=== PATIENT | male | born 1950 | race American Indian/Alaskan Native ===

== ENCOUNTER 2017-07-05 07:17 | Day surgery (SDC) | payer MEDICARE, MEDICAID ==
[2017-07-05] MEDS ORDERED: Midazolam 1 MG/ML 2 ML SDV ONE (07:27)
[2017-07-05] MEDS ORDERED: Dexamethasone 4 MG/ML SDV ONE (07:27)
[2017-07-05] MEDS ORDERED: Sodium Chloride 0.9% 10 ML Syringe FLUSH PRN (07:30)
[2017-07-05] MEDS ORDERED: Moxifloxacin 0.5% Ophth Soln 3 ML Bottle EYELF ONE (07:30)
[2017-07-05] MEDS ORDERED: Timolol Maleate 0.5% Ophth Soln 5 ML Bottle EYELF ONE (07:30)
[2017-07-05] MEDS ORDERED: Cataract Ophth Solution EYELF ONE (07:30)
[2017-07-05] MEDS ORDERED: Acetaminophen 325 MG Tab PO PRN (07:30)
[2017-07-05] MEDS ORDERED: Phenylephrine 10% Ophth Soln 5 ML Bot EYELF PRN (07:30)
[2017-07-05] MEDS ORDERED: Phenylephrine 10% Ophth Soln 5 ML Bot EYELF ONE (07:30)
[2017-07-05] MEDS ORDERED: Povidone-Iodine 5% Sterile Ophth Soln 30 ML Bottle EYELF ONE ×2 (07:30→10:33)
[2017-07-05] MEDS ORDERED: Ondansetron 4 MG/2 ML SDV IVPUSH PRN (07:30)
[2017-07-05] MEDS ORDERED: Proparacaine 0.5% Ophth Soln 15 ML Bottle EYELF ONE (07:30)
[2017-07-05] MEDS ORDERED: Acetaminophen/Codeine 300-30 MG Tab PO PRN (07:30)
[2017-07-05] MEDS ORDERED: Tetracaine HCl/PF 0.5% 4 ML Bottle EYELF ONE (10:33)
[2017-07-05] MEDS ORDERED: Dexamethasone/Neomycin/Polymyxin B Ophth Oint 3.5 GM Tube EYELF ONE (10:34)
[2017-07-05] MEDS ORDERED: Apraclonidine 0.5% Ophth Soln 5 ML Bot EYELF ONE (10:35)
[2017-07-05] MEDS ORDERED: Diclofenac Sodium 0.1% Ophth Soln 5 ML Bottle EYELF ONE (10:35)
[2017-07-05] MEDS ORDERED: Vancomycin 500 MG SDV EYELF ONE (10:36)
[2017-07-05] MEDS ORDERED: Balanced Salt Solution Ophth Irrig 500 ML Bottle IOCULAR ONE (10:36)
[2017-07-05] MEDS ORDERED: Chondroitin Sulfate/Hyaluronate Sodium Ophth Inj 0.75 ML Syringe EYELF ONE (10:36)
[2017-07-05 11:14] VITALS: BP 173/102
[2017-07-05] MEDS ORDERED: Midazolam 1 MG/ML 2 ML SDV IV ONE (14:27)
[2017-07-05] MEDS ORDERED: Dexamethasone 4 MG/ML SDV IV ONE (14:27)
== END 2017-07-05 11:25 | disposition home or self-care (01) ==
LOC: DL.SDS 07:17
PROVIDERS: ATTEND Ophthalmology
DX: E11.36 Type 2 diabetes mellitus with diabetic cataract (principal); F17.210 Nicotine dependence, cigarettes, uncomplicated; I10 Essential (primary) hypertension; E78.5 Hyperlipidemia, unspecified; M19.90 Unspecified osteoarthritis, unspecified site; Z53.29 Procedure and treatment not carried out because of patient's decision for other reasons; Z79.899 Other long term (current) drug therapy; Z79.84 Long term (current) use of oral hypoglycemic drugs
CPT/HCPCS: 66920; A9270; J1100; J2250; J7050; J3370

== ENCOUNTER 2018-07-14 15:17 | Emergency (ER) | payer MEDICARE, MEDICAID ==
[2018-07-14] MEDS ORDERED: Albuterol/Ipratropium 3.0-0.5 MG/3 ML Neb Soln NEB ONE (15:37)
[2018-07-14 15:38] VITALS: BP 125/89
[2018-07-14 16:16] LABS: CHLORIDE,CL 101 mmol/L (101-111); SODIUM,NA 134 mmol/L (135-145)
[2018-07-14] MEDS ORDERED: predniSONE 20 MG Tab PO ONE (16:36)
--- NOTE | 2018-07-14 16:49 | EDM.PDOC ---
Scribed by Samantha Polanco 07/14/18 [id number] for Bobby Harrison PA ED HPI GENERAL MEDICAL PROBLEM - General Chief Complaint: Respiratory Problem Stated Complaint: by ambulance Time Seen by Provider: 07/14/18 15:20 Source of Information: Reports: Patient, EMS, EMS Notes Reviewed, RN, RN Notes Reviewed History Limitations: Reports: No Limitations - History of Present Illness INITIAL COMMENTS - FREE TEXT/NARRATIVE: Patient is a 67-year-old male with increased shortness of breath for 2 months. Today he has used his Albuterol inhaler 12 times with no relief. The patient visits his PCP on 06/27/18 but was advised to keep using his inhaler. EMS called yesterday and gave neb treatment and patient felt better. Onset: Gradual Duration: Getting Worse Location: Reports: Chest Quality: Reports: Ache Severity: Moderate Improves with: Reports: None Worsens with: Reports: None Associated Symptoms: Reports: No Other Symptoms - Related Data Allergies Allergy/AdvReac Type Severity Reaction Status Date / Time No Known Allergies Allergy Verified 05/28/16 21:50 Home Meds: Home Meds Mometasone Furoate [Asmanex 220 MCG] 1 puff INH DAILY 02/02/15 [History] Multivitamin with Minerals [Multiple Vitamin] 1 tab PO DAILY 02/02/15 [History] Cameron-3 Fatty Acids/Fish Oil [Fish Oil 1,000 mg Softgel] 1 tab PO DAILY [History] metFORMIN [Glucophage XR] 1 tab PO BID 06/28/17 [History] Albuterol Sulfate [Proair Hfa] 2 puff IH Q4H PRN 07/14/18 [History] Past Medical History HEENT History: Reports: Cataract Cardiovascular History: Reports: High Cholesterol, Hypertension Respiratory History: Reports: None Gastrointestinal History: Reports: None Genitourinary History: Reports: None Musculoskeletal History: Reports: Back Pain, Chronic, Osteoarthritis, Other ( See Below) Other Musculoskeletal History: knee pain Neurological History: Reports: None Psychiatric History: Reports: None Endocrine/Metabolic History: Reports: Diabetes, Type II Hematologic History: Reports: None Immunologic History: Reports: None Oncologic (Cancer) History: Reports: None Dermatologic History: Reports: None - Infectious Disease History Infectious Disease History: Reports: Chicken Pox, Other (See Below) Other Infectious Disease History: pneumonia - Past Surgical History Head Surgeries/Procedures: Reports: None HEENT Surgical History: Reports: Cataract Surgery Cardiovascular Surgical History: Reports: None GI Surgical History: Reports: None Musculoskeletal Surgical History: Reports: None Social & Family History - Family History Family Medical History: Noncontributory - Caffeine Use Caffeine Use: Reports: Coffee Caffeine Use Comment: 2 cups daily ED ROS GENERAL - Review of Systems Review Of Systems: ROS reveals no pertinent complaints other than HPI. ED EXAM, GENERAL - Physical Exam Exam: See Below Exam Limited By: No Limitations General Appearance: Alert, WD/WN, No Apparent Distress Eye Exam: Bilateral Eye: EOMI, Normal Inspection, PERRL Ears: Normal External Exam, Normal Canal, Hearing Grossly Normal, Normal TMs Nose: Normal Inspection, Normal Mucosa, No Blood Throat/Mouth: Normal Inspection, Normal Lips, Normal Teeth, Normal Gums, Normal Oropharynx, Normal Voice, No Airway Compromise Head: Atraumatic, Normocephalic Neck: Normal Inspection, Supple, Non-Tender, Full Range of Motion Respiratory/Chest: Other (diminished lung sounds in bilateral lower lungs. Some diffuse chest pain. Mild pedal edema.) Cardiovascular: Normal Peripheral Pulses, Regular Rate, Rhythm, No Edema, No Gallop, No JVD, No Murmur, No Rub GI/Abdominal: Normal Bowel Sounds, Soft, Non-Tender, No Organomegaly, No Distention, No Abnormal Bruit, No Mass (Male) Exam: Deferred Rectal (Males) Exam: Deferred Back Exam: Normal Inspection, Full Range of Motion, NT Extremities: Normal Inspection, Normal Range of Motion, Non-Tender, Normal Capillary Refill, No Pedal Edema Neurological: Alert, Oriented, CN II-XII Intact, Normal Cognition, Normal Gait, Normal Reflexes, No Motor/Sensory Deficits Psychiatric: Normal Affect, Normal Mood Skin Exam: Warm, Dry, Intact, Normal Color, No Rash Lymphatic: No Adenopathy Course - Vital Signs Last Recorded V/S: Last Vital Signs Temp 36.8 C 07/14/18 15:28 Pulse 84 07/14/18 15:37 Resp 24 H 07/14/18 15:28 BP 125/89 07/14/18 15:28 Pulse Ox 98 07/14/18 15:28 - Orders/Labs/Meds Orders: Active Orders 24 hr Category Date Time Status EKG Documentation Completion [RC] URGENT Care 07/14/18 15:36 Ordered RT Aerosol Therapy [RC] ASDIRECTED Care 07/14/18 15:37 Ordered CULTURE BLOOD [BC] Stat Lab 07/14/18 15:36 Ordered Labs: Laboratory Tests 07/14/18 07/14/18 07/14/18 Range/Units 15:47 15:47 15:47 WBC 5.1 (5.0-10.0) 10^3/uL RBC 5.22 (4.6-6.2) 10^6/uL Hgb 15.4 (14.0-18.0) g/dL Hct 44.9 (40.0-54.0) % MCV 86.0 (80-100) fL MCH 29.5 (27.0-34.0) pg MCHC 34.3 (33.0-35.0) g/dL Plt Count 174 (150-450) 10^3/uL Neut % (Auto) 57.6 (42.2-75.2) % Lymph % (Auto) 25.1 (20.5-50.1) % Story % (Auto) 12.5 H (2-8) % Eos % (Auto) 4.2 H (1.0-3.0) % Baso % (Auto) 0.6 (0.0-1.0) % Sodium 134 L (135-145) mmol/L Potassium 5.0 (3.6-5.0) mmol/L Chloride 101 (101-111) mmol/L Carbon Dioxide 26.0 (21.0-31.0) mmol/L Anion Gap 12.0 BUN 10 (7-18) mg/dL Creatinine 1.0 (0.6-1.3) mg/dL Est Cr Clr Drug Dosing 91.58 mL/min Estimated GFR (MDRD) > 60 BUN/Creatinine Ratio 10.00 Glucose 296 H (74-105) mg/dL Lactic Acid 1.7 (0.5-2.2) mmol/L Calcium 9.0 (8.4-10.2) mg/dl Total Bilirubin 0.6 (0.2-1.0) mg/dL AST 48 H (10-42) IU/L ALT 58 (10-60) IU/L Alkaline Phosphatase 138 H (42-121) IU/L Troponin I < 0.02 (0.00-0.02) ng/ml Total Protein 8.1 (6.7-8.2) g/dl Albumin 4.4 (3.2-5.5) g/dl Globulin 3.7 Albumin/Globulin Ratio 1.19 Meds: Medications Discontinued Medications Generic Name Dose Route Start Last Admin Trade Name Freq PRN Reason Stop Dose Admin Albuterol/Ipratropium 3 ml 07/14/18 15:37 07/14/18 15:43 Duoneb 3.0-0.5 Mg/3 Ml NEB 07/14/18 15:38 3 ml ONETIME ONE Administration Prednisone 40 mg 07/14/18 16:36 Prednisone PO 07/14/18 16:37 ONETIME ONE Departure - Departure Time of Disposition: 16:39 Disposition: Home, Self-Care 01 Condition: Fair Clinical Impression: COPD exacerbation - Discharge Information *PRESCRIPTION DRUG MONITORING PROGRAM REVIEWED*: Not Applicable *COPY OF PRESCRIPTION DRUG MONITORING REPORT IN PATIENT ENMANUEL: Not Applicable Instructions: Chronic Obstructive Pulmonary Disease Exacerbation, [id number] Forms: ED Department Discharge Care Plan Goals: The patient was advised of the examination, lab and EKG results during the visit. The patient was given a dose of Prednisone while in the ED. The patient was discharged with a script for Prednisone (20 mg) #10 to take 2 by mouth daily with food for the next 5 days. The patient should follow-up with his primary care facility for further treatment (a nebulizer machine and medication) . If the patient has any additional symptoms or concerns, the patient should follow-up with his primary care facility or return to the emergency department. - My Orders Last 24 Hours: My Active Orders 07/14/18 15:36 EKG Documentation Completion [RC] URGENT CULTURE BLOOD [BC] Stat 07/14/18 15:37 RT Aerosol Therapy [RC] ASDIRECTED - Assessment/Plan Last 24 Hours: My Active Orders 07/14/18 15:36 EKG Documentation Completion [RC] URGENT CULTURE BLOOD [BC] Stat 07/14/18 15:37 RT Aerosol Therapy [RC] ASDIRECTED I have read and agree with the documentation that has been completed regarding this visit. By signing this record, I attest that the documentation was completed in my physical presence and is an accurate record of the encounter.
--- NOTE | 2018-07-16 16:31 | EKG ---
07/14/2018 - ALIRIO SORTO - TIME: 3:17 p.m. FINDINGS: As per my reading, sinus rhythm at 83. Probable inferior infarct, old. [facility] /[id number]
== END 2018-07-14 17:05 | disposition home or self-care (01) ==
LOC: DL.ED 15:17
DX: J44.1 Chronic obstructive pulmonary disease with (acute) exacerbation (principal); E78.00 Pure hypercholesterolemia, unspecified; I10 Essential (primary) hypertension; E11.9 Type 2 diabetes mellitus without complications; Z79.899 Other long term (current) drug therapy; Z79.84 Long term (current) use of oral hypoglycemic drugs
CPT/HCPCS: 36415; 80053; 83605; 84484; 85025; 87040; 93005; 94640; 99285; A9270; 93010; J7620-GY

== ENCOUNTER 2020-04-12 09:15 | Emergency (ER) | payer MEDICARE, MEDICAID ==
[2020-04-12 09:33] VITALS: BP 118/53; PULSE 93
[2020-04-12] MEDS ORDERED: Sodium Chloride 0.9% 10 ML Syringe FLUSH PRN (09:39)
[2020-04-12 10:30] LABS: ANION GAP 13.8 mEq/L (7-13)
[2020-04-12] MEDS ORDERED: GI Cocktail Oral Solution 30 ML PO ONE (10:39)
[2020-04-12] MEDS ORDERED: Sodium Chloride 0.9% 1,000 ML IV ONE (10:42)
[2020-04-12] MEDS ORDERED: Piperacillin/Tazobactam 3.375 GM in Sodium Chloride 0.9% 100 ML IV ONE (11:16)
[2020-04-12] MEDS ORDERED: Vancomycin 1.5 GM in Sodium Chloride 0.9% 500 ML IV ONE (11:17)
--- NOTE | 2020-04-12 11:20 | EDM.PDOC ---
Scribed by Samantha Polanco 04/12/20 1120 for Cherise Kahn NP ED HPI GENERAL MEDICAL PROBLEM - General Chief Complaint: Skin Complaint Stated Complaint: UNKNOWN Time Seen by Provider: 04/12/20 09:40 Source of Information: Reports: Patient, RN, RN Notes Reviewed History Limitations: Reports: No Limitations - History of Present Illness INITIAL COMMENTS - FREE TEXT/NARRATIVE: Patient presents to ER with drainage from the scrotum a few days ago. Patient states he is unsure if he was bit by a spider. First noticed it 1 week ago and progressively gotten worse. He has had no fever, chills, nausea, vomiting, diarrhea, chest pains or shortness of breath. Onset: Unknown/Unsure Duration: Getting Worse Location: Reports: Other (scrotum) Quality: Reports: Ache Severity: Severe Improves with: Reports: None Worsens with: Reports: None Associated Symptoms: Reports: No Other Symptoms Scrotum Pain Score (Numeric/FACES): 3 - Related Data Allergies Allergy/AdvReac Type Severity Reaction Status Date / Time No Known Allergies Allergy Verified 04/12/20 09:30 Home Meds: Home Meds Mometasone Furoate [Asmanex 220 MCG] 1 puff INH DAILY 02/02/15 [History] Multivitamin with Minerals [Multiple Vitamin] 1 tab PO DAILY 02/02/15 [History] Reynolds-3 Fatty Acids/Fish Oil [Fish Oil 1,000 mg Softgel] 1 tab PO DAILY [History] metFORMIN [Glucophage XR] 1 tab PO BID 06/28/17 [History] Albuterol Sulfate [Proair Hfa] 2 puff IH Q4H PRN 07/14/18 [History] Past Medical History HEENT History: Reports: Cataract Cardiovascular History: Reports: High Cholesterol, Hypertension Respiratory History: Reports: None Gastrointestinal History: Reports: None Genitourinary History: Reports: None Musculoskeletal History: Reports: Back Pain, Chronic, Osteoarthritis, Other ( See Below) Other Musculoskeletal History: knee pain Neurological History: Reports: None Psychiatric History: Reports: None Endocrine/Metabolic History: Reports: Diabetes, Type II Hematologic History: Reports: None Immunologic History: Reports: None Oncologic (Cancer) History: Reports: None Dermatologic History: Reports: None - Infectious Disease History Infectious Disease History: Reports: Chicken Pox, Other (See Below) Other Infectious Disease History: pneumonia - Past Surgical History Head Surgeries/Procedures: Reports: None HEENT Surgical History: Reports: Cataract Surgery Cardiovascular Surgical History: Reports: None GI Surgical History: Reports: None Musculoskeletal Surgical History: Reports: None Social & Family History - Family History Family Medical History: Noncontributory - Tobacco Use Smoking Status *Q: Heavy Tobacco Smoker Years of Tobacco use: 22 Packs/Tins Daily: 1 - Caffeine Use Caffeine Use: Reports: Coffee Caffeine Use Comment: 2 cups daily - Recreational Drug Use Recreational Drug Use: No ED ROS GENERAL - Review of Systems Review Of Systems: Comprehensive ROS is negative, except as noted in HPI. ED EXAM, SKIN/RASH Exam: See Below Exam Limited By: No Limitations General Appearance: Alert, WD/WN, No Apparent Distress Eye Exam: Bilateral Eye: EOMI, Normal Inspection, PERRL Ears: Normal External Exam, Normal Canal, Hearing Grossly Normal, Normal TMs Nose: Normal Inspection, Normal Mucosa, No Blood Throat/Mouth: Normal Inspection, Normal Lips, Normal Teeth, Normal Gums, Normal Oropharynx, Normal Voice, No Airway Compromise Head: Atraumatic, Normocephalic Neck: Normal Inspection, Supple, Non-Tender, Full Range of Motion Respiratory/Chest: Crackles (bases bilaterally) Cardiovascular: Normal Peripheral Pulses, Regular Rate, Rhythm, No Edema, No Gallop, No JVD, No Murmur, No Rub GI/Abdominal: Normal Bowel Sounds, Soft, Non-Tender, No Organomegaly, No Distention, No Abnormal Bruit, No Mass (Male) Exam: Scrotal Swelling (and erythema ) Rectal (Males) Exam: Deferred Back Exam: Normal Inspection, Full Range of Motion, NT Extremities: Normal Inspection, Normal Range of Motion, Non-Tender, No Pedal Edema, Normal Capillary Refill Neurological: Alert, Oriented, CN II-XII Intact, Normal Cognition, Normal Gait, Normal Reflexes, No Motor/Sensory Deficits Psychiatric: Normal Affect, Normal Mood Skin: Other (erythematous and swelling to scrotum) Lymphatic: No Adenopathy Course - Vital Signs Last Recorded V/S: Last Vital Signs Temp 97.1 F 04/12/20 09:30 Pulse 93 04/12/20 09:30 Resp 18 04/12/20 09:30 BP 118/53 L 04/12/20 09:30 Pulse Ox 97 04/12/20 09:30 - Orders/Labs/Meds Orders: Active Orders 24 hr Category Date Time Status Alvarez Catheter Insertion [Insert Urinary Catheter] [OM. Care 04/12/20 11:30 Ordered PC] Q24H Peripheral IV Care [RC] . DIRECTED Care 04/12/20 09:41 Active Urinary Catheter Assessment [RC] ASDIRECTED Care 04/12/20 11:18 Active CULTURE BLOOD [BC] Stat Lab 04/12/20 09:54 Received CULTURE BLOOD [BC] Stat Lab 04/12/20 09:58 Received CULTURE WOUND [RM] Urgent Lab 04/12/20 09:54 Received Blood Culture x2 Reflex Set [OM.PC] Stat Oth 04/12/20 09:41 Ordered Peripheral IV Insertion Adult [OM.PC] Stat Oth 04/12/20 09:39 Ordered Labs: Laboratory Tests 04/12/20 04/12/20 04/12/20 Range/Units 09:54 09:54 09:54 WBC 12.0 H (5.0-10.0) 10^3/uL RBC 4.08 L (4.6-6.2) 10^6/uL Hgb 12.0 L D (14.0-18.0) g/dL Hct 34.5 L (40.0-54.0) % MCV 84.6 (80-100) fL MCH 29.4 (27.0-34.0) pg MCHC 34.8 (33.0-35.0) g/dL Plt Count 253 D (150-450) 10^3/uL Neut % (Auto) 87.2 H (42.2-75.2) % Lymph % (Auto) 5.3 L (20.5-50.1) % Louisa % (Auto) 6.0 (2-8) % Eos % (Auto) 1.3 (1.0-3.0) % Baso % (Auto) 0.2 (0.0-1.0) % Sodium 131 L (136-145) mmol/L Potassium 3.8 (3.5-5.1) mmol/L Chloride 95 L (98-107) mmol/L Carbon Dioxide 26 (21-32) mmol/L Anion Gap 13.8 H (7-13) mEq/L BUN 12 (7-18) mg/dL Creatinine 1.28 (0.70-1.30) mg/dL Est Cr Clr Drug Dosing 69.61 mL/min Estimated GFR (MDRD) 56 BUN/Creatinine Ratio 9.4 (No establ ref range) Glucose 388 H (74-99) mg/dL Lactic Acid 1.6 (0.4-2.0) mmol/L Calcium 8.7 (8.5-10.1) mg/dL Total Bilirubin 1.0 (0.2-1.0) mg/dL AST 22 (15-37) U/L ALT 57 (16-63) U/L Alkaline Phosphatase 127 H (46-116) U/L C-Reactive Protein 20.2 H (0.0-0.9) mg/dL Total Protein 7.0 (6.4-8.2) g/dL Albumin 2.7 L (3.4-5.0) g/dL Globulin 4.3 Albumin/Globulin Ratio 0.63 Urine Color (YELLOW) Urine Appearance (CLEAR) Urine pH (5.0-9.0) Ur Specific [place] (1.005-1.030) Urine Protein (NEGATIVE) Urine Glucose (UA) (NEGATIVE) Urine Ketones (NEGATIVE) Urine Occult Blood (NEGATIVE) Urine Nitrite (NEGATIVE) Urine Bilirubin (NEGATIVE) Urine Urobilinogen (0.2-1.0) mg/dL Ur Leukocyte Esterase (NEGATIVE) Urine RBC /HPF Urine WBC (0-5/HPF) /HPF Ur Epithelial Cells (NOT SEEN) /HPF Urine Bacteria (0-FEW/HPF) /HPF Urine Mucus (NOT SEEN) /LPF 04/12/ Range/Units 11:29 WBC (5.0-10.0) 10^3/uL RBC (4.6-6.2) 10^6/uL Hgb (14.0-18.0) g/dL Hct (40.0-54.0) % MCV (80-100) fL MCH (27.0-34.0) pg MCHC (33.0-35.0) g/dL Plt Count (150-450) 10^3/uL Neut % (Auto) (42.2-75.2) % Lymph % (Auto) (20.5-50.1) % Louisa % (Auto) (2-8) % Eos % (Auto) (1.0-3.0) % Baso % (Auto) (0.0-1.0) % Sodium (136-145) mmol/L Potassium (3.5-5.1) mmol/L Chloride (98-107) mmol/L Carbon Dioxide (21-32) mmol/L Anion Gap (7-13) mEq/L BUN (7-18) mg/dL Creatinine (0.70-1.30) mg/dL Est Cr Clr Drug Dosing mL/min Estimated GFR (MDRD) BUN/Creatinine Ratio (No establ ref range) Glucose (74-99) mg/dL Lactic Acid (0.4-2.0) mmol/L Calcium (8.5-10.1) mg/dL Total Bilirubin (0.2-1.0) mg/dL AST (15-37) U/L ALT (16-63) U/L Alkaline Phosphatase (46-116) U/L C-Reactive Protein (0.0-0.9) mg/dL Total Protein (6.4-8.2) g/dL Albumin (3.4-5.0) g/dL Globulin Albumin/Globulin Ratio Urine Color Dark yellow (YELLOW) Urine Appearance Slightly cloudy (CLEAR) Urine pH 6.0 (5.0-9.0) Ur Specific [place] 1.020 (1.005-1.030) Urine Protein 30 H (NEGATIVE) Urine Glucose (UA) 500 H (NEGATIVE) Urine Ketones 15 H (NEGATIVE) Urine Occult Blood Trace-intact H (NEGATIVE) Urine Nitrite Negative (NEGATIVE) Urine Bilirubin Negative (NEGATIVE) Urine Urobilinogen 0.2 (0.2-1.0) mg/dL Ur Leukocyte Esterase Negative (NEGATIVE) Urine RBC 0-5 /HPF Urine WBC 0-5 (0-5/HPF) /HPF Ur Epithelial Cells Rare (NOT SEEN) /HPF Urine Bacteria Rare (0-FEW/HPF) /HPF Urine Mucus Rare (NOT SEEN) /LPF Meds: Medications Discontinued Medications Generic Name Dose Route Start Last Admin Trade Name Freq PRN Reason Stop Dose Admin Al Hydroxide/Mg Hydroxide 30 ml 04/12/20 10:39 04/12/20 10:44 Gi Cocktail PO 04/12/20 10:40 30 ml ONETIME ONE Administration Sodium Chloride 1,000 mls @ 500 mls/hr 04/12/20 10:42 04/12/20 10:44 Normal Saline IV 04/12/20 12:41 500 mls/hr .BOLUS ONE Administration Piperacillin Sod/Tazobactam 100 mls @ 200 mls/hr 04/12/20 11:16 04/12/20 11: 34 Sod 3.375 gm/ Sodium Chloride IV 04/12/20 11:45 200 mls/hr ONETIME ONE Administration Vancomycin HCl 1.5 gm/ Sodium 500 mls @ 250 mls/hr 04/12/20 11:17 04/12/20 11 :34 Chloride IV 04/12/20 13:16 250 mls/hr ONETIME ONE Administration Sodium Chloride 10 ml 04/12/20 09:39 04/12/20 09:56 Saline Flush FLUSH 10 ml ASDIRECTED PRN Administration Keep Vein Open - Re-Assessments/Exams Free Text/Narrative Re-Assessment/Exam: 04/12/20 11:20 Discussed patient case with 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 She accepted the patient for transfer and will see him in the ER at [facility]. Departure - Departure Time of Disposition: 11:19 Disposition: DC/Tfer to [facility] 02 Condition: Fair, Serious Clinical Impression: Perineal abscess - Discharge Information *PRESCRIPTION DRUG MONITORING PROGRAM REVIEWED*: No *COPY OF PRESCRIPTION DRUG MONITORING REPORT IN PATIENT ENMANUEL: No Forms: ED Department Discharge, Interfacility Transfer [facility] Sepsis Event Note - Evaluation Sepsis Screening Result: No Definite Risk - Focused Exam Vital Signs: Vital Signs Temp Pulse Resp BP Pulse Ox 04/12/20 09:30 97.1 F 93 18 118/53 L 97 Date Exam was Performed: 04/12/20 Time Exam was Performed: 13:10 - My Orders Last 24 Hours: My Active Orders 04/12/20 09:39 Peripheral IV Insertion Adult [OM.PC] Stat 04/12/20 09:41 Peripheral IV Care [RC] . DIRECTED Blood Culture x2 Reflex Set [OM.PC] Stat 04/12/20 09:54 CULTURE BLOOD [BC] Stat CULTURE WOUND [RM] Urgent 04/12/20 09:58 CULTURE BLOOD [BC] Stat 04/12/20 11:18 Urinary Catheter Assessment [RC] ASDIRECTED 04/12/20 11:30 Alvarez Catheter Insertion [Insert Urinary Catheter] [OM.PC] Q24H - Assessment/Plan Last 24 Hours: My Active Orders 04/12/20 09:39 Peripheral IV Insertion Adult [OM.PC] Stat 04/12/20 09:41 Peripheral IV Care [RC] . DIRECTED Blood Culture x2 Reflex Set [OM.PC] Stat 04/12/20 09:54 CULTURE BLOOD [BC] Stat CULTURE WOUND [RM] Urgent 04/12/20 09:58 CULTURE BLOOD [BC] Stat 04/12/20 11:18 Urinary Catheter Assessment [RC] ASDIRECTED 04/12/20 11:30 Alvarez Catheter Insertion [Insert Urinary Catheter] [OM.PC] Q24H I have read and agree with the documentation that has been completed regarding this visit. By signing this record, I attest that the documentation was completed in my physical presence and is an accurate record of the encounter.
== END 2020-04-12 12:00 ==
LOC: DL.ED 09:15
DX: L02.215 Cutaneous abscess of perineum (principal); E78.00 Pure hypercholesterolemia, unspecified; I10 Essential (primary) hypertension; E11.9 Type 2 diabetes mellitus without complications; F17.210 Nicotine dependence, cigarettes, uncomplicated; Z79.899 Other long term (current) drug therapy; Z79.84 Long term (current) use of oral hypoglycemic drugs
CPT/HCPCS: 36415; 51702; 80053; 81001; 83605; 85025; 86140; 87040; 87070; 96361; 96374; 96375; 99284; A9270; J2543; J3370; J7030; J7040; J7050; 87077; 87186

== ENCOUNTER 2020-08-15 18:18 | Emergency (ER) | payer MEDICARE, MEDICAID ==
[2020-08-15 18:56] VITALS: BP 118/68; PULSE 93
[2020-08-15] MEDS ORDERED: Sodium Chloride 0.9% 1,000 ML IV ONE (18:58)
[2020-08-15 19:31] LABS: CHLORIDE,CL 103 mmol/L (98-107); SODIUM,NA 138 mmol/L (136-145)
--- NOTE | 2020-08-15 20:05 | EDM.PDOC ---
ED HPI GENERAL MEDICAL PROBLEM - General Chief Complaint: Gastrointestinal Problem Stated Complaint: DIARRHEA - 2 WEEKS Time Seen by Provider: 08/15/20 20:01 Source of Information: Reports: Patient History Limitations: Reports: No Limitations - History of Present Illness INITIAL COMMENTS - FREE TEXT/NARRATIVE: 2 weeks h/o soft diarrhea with some foods like pancake and candies. not seen anyone for it. appetite normal. - Related Data Allergies Allergy/AdvReac Type Severity Reaction Status Date / Time No Known Allergies Allergy Verified 08/15/20 18:49 Home Meds: Home Meds Mometasone Furoate [Asmanex 220 MCG] 1 puff INH DAILY 02/02/15 [History] Multivitamin with Minerals [Multiple Vitamin] 1 tab PO DAILY 02/02/15 [History] [place]-3 Fatty Acids/Fish Oil [Fish Oil 1,000 mg Softgel] 1 tab PO DAILY 06/28/17 [History] metFORMIN [Glucophage XR] 1,000 mg PO DAILY 06/28/17 [History] Albuterol Sulfate [Proair Hfa] 2 puff IH Q4H PRN 07/14/18 [History] Aspirin [Aspirin EC] 81 mg PO DAILY 08/15/20 [History] Bumetanide [Bumex] 1 mg PO DAILY 08/15/20 [History] Gabapentin [Neurontin] 600 mg PO BID 08/15/20 [History] Hydrocortisone [Hydrocortisone 2.5% Crm] 1 applic TOP DAILY 08/15/20 [History] Losartan [Cozaar] 25 mg PO DAILY 08/15/20 [History] Oxybutynin 10 mg PO TID 08/15/20 [History] Terazosin [Hytrin] 5 mg PO DAILY 08/15/20 [History] Past Medical History HEENT History: Reports: Cataract Cardiovascular History: Reports: High Cholesterol, Hypertension Respiratory History: Reports: None Gastrointestinal History: Reports: Cholelithiasis, GERD Genitourinary History: Reports: None Musculoskeletal History: Reports: Back Pain, Chronic, Osteoarthritis, Other (See Below) Other Musculoskeletal History: knee pain Neurological History: Reports: None Psychiatric History: Reports: None Endocrine/Metabolic History: Reports: Diabetes, Type II Hematologic History: Reports: None Immunologic History: Reports: None Oncologic (Cancer) History: Reports: Prostate Dermatologic History: Reports: None - Infectious Disease History Infectious Disease History: Reports: Chicken Pox, Other (See Below) Other Infectious Disease History: pneumonia - Past Surgical History Head Surgeries/Procedures: Reports: None HEENT Surgical History: Reports: Cataract Surgery Cardiovascular Surgical History: Reports: None GI Surgical History: Reports: None Male Surgical History: Reports: Prostatectomy Musculoskeletal Surgical History: Reports: None Social & Family History - Family History Family Medical History: Noncontributory - Tobacco Use Smoking Status *Q: Current Every Day Smoker Years of Tobacco use: 50 Packs/Tins Daily: 0.5 - Caffeine Use Caffeine Use: Reports: None Caffeine Use Comment: 2 cups daily - Recreational Drug Use Recreational Drug Use: No ED ROS GENERAL - Review of Systems Review Of Systems: Comprehensive ROS is negative, except as noted in HPI. ED EXAM, GI/ABD - Physical Exam Exam: See Below Exam Limited By: No Limitations General Appearance: Alert, WD/WN, No Apparent Distress Ears: Hearing Grossly Normal Throat/Mouth: Normal Voice, No Airway Compromise Head: Atraumatic Neck: Non-Tender, Full Range of Motion Respiratory/Chest: No Respiratory Distress Cardiovascular: Regular Rate, Rhythm GI/Abdominal Exam: Soft, Non-Tender. No: Distended, Guarding, Rigid, Rebound, Tender (Male) Exam: Deferred Rectal (Males) Exam: Deferred Neurological: Alert, Oriented, Normal Cognition, Normal Gait, No Motor/Sensory Deficits Psychiatric: Normal Affect, Normal Mood Skin Exam: Warm, Dry, Normal Color Lymphatic: No Adenopathy Course - Vital Signs Last Recorded V/S: Last Vital Signs Temp 36.5 C 08/15/20 18:50 Pulse 93 08/15/20 18:50 Resp 18 08/15/20 18:50 BP 118/68 08/15/20 18:50 Pulse Ox 97 08/15/20 18:50 - Orders/Labs/Meds Labs: Laboratory Tests 08/15/20 08/15/20 Range/Units 19:01 19:01 WBC 6.6 (5.0-10.0) 10^3/uL RBC 4.28 L (4.6-6.2) 10^6/uL Hgb 11.6 L (14.0-18.0) g/dL Hct 35.2 L (40.0-54.0) % MCV 82.2 (80-100) fL MCH 27.1 (27.0-34.0) pg MCHC 33.0 (33.0-35.0) g/dL Plt Count 205 (150-450) 10^3/uL Neut % (Auto) 81.3 H (42.2-75.2) % Lymph % (Auto) 10.4 L (20.5-50.1) % [place] % (Auto) 5.7 (2-8) % Eos % (Auto) 2.3 (1.0-3.0) % Baso % (Auto) 0.3 (0.0-1.0) % Sodium 138 (136-145) mmol/L Potassium 4.0 (3.5-5.1) mmol/L Chloride 103 (98-107) mmol/L Carbon Dioxide 27 (21-32) mmol/L Anion Gap 12.0 (7-13) mEq/L BUN 18 (7-18) mg/dL Creatinine 0.98 (0.70-1.30) mg/dL Est Cr Clr Drug Dosing 91.97 mL/min Estimated GFR (MDRD) > 60 BUN/Creatinine Ratio 18.4 (No establ ref range) Glucose 124 H (74-99) mg/dL Calcium 9.1 (8.5-10.1) mg/dL Total Bilirubin 0.4 (0.2-1.0) mg/dL AST 23 (15-37) U/L ALT 49 (16-63) U/L Alkaline Phosphatase 135 H (46-116) U/L Total Protein 7.8 (6.4-8.2) g/dL Albumin 3.6 (3.4-5.0) g/dL Globulin 4.2 Albumin/Globulin Ratio 0.9 Amylase 56 (25-115) U/L Lipase 126 (73-393) U/L Meds: Medications Discontinued Medications Generic Name Dose Route Start Last Admin Trade Name Freq PRN Reason Stop Dose Admin Sodium Chloride 1,000 mls @ 999 mls/hr 08/15/20 18:58 08/15/20 19:04 Normal Saline IV 08/15/20 19:58 999 mls/hr .BOLUS ONE Administration Departure - Departure Time of Disposition: 20:15 Disposition: Home, Self-Care 01 Condition: Good Clinical Impression: Diarrhea - Discharge Information Instructions: Food Choices to Help Relieve Diarrhea, Adult Forms: ED Department Discharge Additional Instructions: 1) avoid foods that cause diarrhoea 2) bring in stool sample when obtain it. 3) follow up at clinic Sepsis Event Note (ED) - Evaluation Sepsis Screening Result: No Definite Risk - Focused Exam Vital Signs: Vital Signs Temp Pulse Resp BP Pulse Ox 08/15/20 18:50 36.5 C 93 18 118/68 97
== END 2020-08-15 20:26 | disposition home or self-care (01) ==
LOC: DL.ED 18:18
DX: R19.7 Diarrhea, unspecified (principal); E78.00 Pure hypercholesterolemia, unspecified; I10 Essential (primary) hypertension; E11.9 Type 2 diabetes mellitus without complications; M19.90 Unspecified osteoarthritis, unspecified site; F17.210 Nicotine dependence, cigarettes, uncomplicated; Z79.82 Long term (current) use of aspirin; Z79.84 Long term (current) use of oral hypoglycemic drugs; Z79.899 Other long term (current) drug therapy
CPT/HCPCS: 36415; 80053; 82150; 83690; 85025; 87177; 87206; 87207; 96360; 99284; J7030; 99283

== ENCOUNTER 2020-10-22 15:38 | Emergency (ER) | payer OTHER, MEDICARE, MEDICAID ==
[2020-10-22 15:56] VITALS: BP 112/69; PULSE 74
[2020-10-22 16:30] LABS: ANION GAP 10.2 mEq/L (7-13); CHLORIDE,CL 101 mmol/L (98-107); SODIUM,NA 135 mmol/L (136-145)
--- NOTE | 2020-10-22 16:47 | EDM.PDOC ---
"ED HPI GENERAL MEDICAL PROBLEM - General Chief Complaint: General Stated Complaint: DIZZINESS SENT FROM [facility] Time Seen by Provider: 10/22/20 16:10 Source of Information: Reports: Patient, Provider (Marianela - Thread Twister from clinic), RN, RN Notes Reviewed History Limitations: Reports: Altered Mental Status (Patient lethargic and sleeping; Arouses to voice) - History of Present Illness INITIAL COMMENTS - FREE TEXT/NARRATIVE: Patient presents to the ED from [facility] for the complaints of dizziness. The patient was not assessed at the clinic, but was noted to be sleepy/lethargic in the waiting room, so he was brought here for further evaluation. The patient is lethargic throughout the interview and must be shaken awake several times. He states he is unsure why he is in the ER. He denies pain to body or extremities. He denies fever, shaking chills, recent illness, dizziness, chest pain/pressure, palpitations, abdominal pain, nausea, vomiting, or diarrhea. He is unable to answer questions regarding his medications or chronic health status. - Related Data Allergies Allergy/AdvReac Type Severity Reaction Status Date / Time No Known Allergies Allergy Verified 08/15/20 18:49 Home Meds: Home Meds Mometasone Furoate [Asmanex 220 MCG] 1 puff INH DAILY 02/02/15 [History] Multivitamin with Minerals [Multiple Vitamin] 1 tab PO DAILY 02/02/15 [History] [place]-3 Fatty Acids/Fish Oil [Fish Oil 1,000 mg Softgel] 1 tab PO DAILY 06/28/17 [History] metFORMIN [Glucophage XR] 1,000 mg PO DAILY 06/28/17 [History] Albuterol Sulfate [Proair Hfa] 2 puff IH Q4H PRN 07/14/18 [History] Aspirin [Aspirin EC] 81 mg PO DAILY 08/15/20 [History] Bumetanide [Bumex] 1 mg PO DAILY 08/15/20 [History] Gabapentin [Neurontin] 600 mg PO BID 08/15/20 [History] Hydrocortisone [Hydrocortisone 2.5% Crm] 1 applic TOP DAILY 08/15/20 [History] Losartan [Cozaar] 25 mg PO DAILY 08/15/20 [History] Oxybutynin 10 mg PO TID 08/15/20 [History] Terazosin [Hytrin] 5 mg PO DAILY 08/15/20 [History] Past Medical History HEENT History: Reports: Cataract Cardiovascular History: Reports: High Cholesterol, Hypertension Respiratory History: Reports: None Gastrointestinal History: Reports: Cholelithiasis, GERD Genitourinary History: Reports: None Musculoskeletal History: Reports: Back Pain, Chronic, Osteoarthritis, Other (See Below) Other Musculoskeletal History: knee pain Neurological History: Reports: None Psychiatric History: Reports: None Endocrine/Metabolic History: Reports: Diabetes, Type II Hematologic History: Reports: None Immunologic History: Reports: None Oncologic (Cancer) History: Reports: Prostate Dermatologic History: Reports: None - Infectious Disease History Infectious Disease History: Reports: Chicken Pox, Other (See Below) Other Infectious Disease History: pneumonia - Past Surgical History Head Surgeries/Procedures: Reports: None HEENT Surgical History: Reports: Cataract Surgery Cardiovascular Surgical History: Reports: None GI Surgical History: Reports: None Male Surgical History: Reports: Prostatectomy Musculoskeletal Surgical History: Reports: None Social & Family History - Family History Family Medical History: No Pertinent Family History - Tobacco Use Tobacco Use Status *Q: Never Tobacco User - Caffeine Use Caffeine Use: Reports: None Caffeine Use Comment: 2 cups daily - Recreational Drug Use Recreational Drug Use: No ED ROS GENERAL - Review of Systems Review Of Systems: Comprehensive ROS is negative, except as noted in HPI. ED EXAM, GENERAL - Physical Exam Exam: See Below Exam Limited By: Altered Mental Status (Lethargy) General Appearance: Lethargic Eye Exam: Bilateral Eye: PERRL Ears: Normal External Exam, Normal Canal, Hearing Grossly Normal, Normal TMs Nose: Normal Mucosa, No Blood, Nasal Deformity (Old deformity) Throat/Mouth: No: Normal Teeth (Dentures falling out), Normal Oropharynx (Dry mucous membranes; Dentures falling out) Head: Atraumatic, Normocephalic Neck: Normal Inspection, Supple, Non-Tender, Full Range of Motion. No: Lymphadenopathy (L), Lymphadenopathy (R) Respiratory/Chest: No Respiratory Distress, Lungs Clear, Normal Breath Sounds, No Accessory Muscle Use, Chest Non-Tender Cardiovascular: Normal Peripheral Pulses, Regular Rate, Rhythm, No Edema, No Gallop, No JVD, No Murmur, No Rub Peripheral Pulses: 2+: Radial (L), Radial (R) GI/Abdominal: Normal Bowel Sounds, Soft, Non-Tender, No Distention, No Mass, Pelvis Stable (Male) Exam: Deferred Rectal (Males) Exam: Deferred Back Exam: Normal Inspection, Full Range of Motion. No: CVA Tenderness (L), CVA Tenderness (R) Extremities: Normal Inspection, Normal Range of Motion, Non-Tender, No Pedal Edema, Normal Capillary Refill Neurological: Inattentive, Disoriented, Slow to Respond, Other (Lethargic) Skin Exam: Warm, Dry, Intact, Normal Color, No Rash. No: Ecchymosis, Erythema, Mottled, Pallor, Petechiae #1 Interpretation EKG Date: 10/22/20 Time: 16:10 Rhythm: NSR Rate (Beats/Min): 62 [place]: LAD-Left [place] Deviation P-Wave: Present QRS: Wide ST-T: Normal QT: Normal Comparison: No Change EKG Interpretation Comments: NSR; No evidence of acute ischemia Course - Vital Signs Last Recorded V/S: Last Vital Signs Temp 97 F 10/22/20 15:50 Pulse 74 10/22/20 15:50 Resp 16 10/22/20 15:50 BP 112/69 10/22/20 15:50 Pulse Ox 96 10/22/20 15:50 - Orders/Labs/Meds Orders: Active Orders 24 hr Category Date Time Status Blood Glucose Check, Bedside [RC] ONETIME Care 10/22/20 15:50 Active EKG Documentation Completion [RC] STAT Care 10/22/20 15:49 Active Labs: Laboratory Tests 10/22/20 10/22/20 10/22/20 Range/Units 16:00 16:00 16:00 WBC 6.2 (5.0-10.0) 10^3/uL RBC 4.33 L (4.6-6.2) 10^6/uL Hgb 12.2 L (14.0-18.0) g/dL Hct 36.4 L (40.0-54.0) % MCV 84.1 (80-100) fL MCH 28.2 (27.0-34.0) pg MCHC 33.5 (33.0-35.0) g/dL Plt Count 232 (150-450) 10^3/uL Neut % (Auto) 72.0 (42.2-75.2) % Lymph % (Auto) 13.2 L (20.5-50.1) % [place] % (Auto) 10.0 H (2-8) % Eos % (Auto) 4.2 H (1.0-3.0) % Baso % (Auto) 0.6 (0.0-1.0) % Sodium 135 L (136-145) mmol/L Potassium 4.2 (3.5-5.1) mmol/L Chloride 101 (98-107) mmol/L Carbon Dioxide 28 (21-32) mmol/L Anion Gap 10.2 (7-13) mEq/L BUN 22 H (7-18) mg/dL Creatinine 1.13 (0.70-1.30) mg/dL Est Cr Clr Drug Dosing 67.72 mL/min Estimated GFR (MDRD) > 60 BUN/Creatinine Ratio 19.5 (No establ ref range) Glucose 119 H (74-99) mg/dL Lactic Acid 0.7 (0.4-2.0) mmol/L Calcium 9.1 (8.5-10.1) mg/dL Total Bilirubin 0.5 (0.2-1.0) mg/dL AST 12 L (15-37) U/L ALT 27 (16-63) U/L Alkaline Phosphatase 108 (46-116) U/L Troponin I < 0.017 (0.000-0.056) ng/mL Total Protein 7.5 (6.4-8.2) g/dL Albumin 3.9 (3.4-5.0) g/dL Globulin 3.6 Albumin/Globulin Ratio 1.1 Urine Color (YELLOW) Urine Appearance (CLEAR) Urine pH (5.0-9.0) Ur Specific [place] (1.005-1.030) Urine Protein (NEGATIVE) Urine Glucose (UA) (NEGATIVE) Urine Ketones (NEGATIVE) Urine Occult Blood (NEGATIVE) Urine Nitrite (NEGATIVE) Urine Bilirubin (NEGATIVE) Urine Urobilinogen (0.2-1.0) mg/dL Ur Leukocyte Esterase (NEGATIVE) Urine RBC /HPF Urine WBC (0-5/HPF) /HPF Ur Epithelial Cells (NOT SEEN) /HPF Amorphous Sediment (NOT SEEN) /HPF Urine Bacteria (0-FEW/HPF) /HPF Urine Opiates Screen (NEGATIVE) Ur Oxycodone Screen (NEGATIVE) Urine Methadone Screen (NEGATIVE) Ur Barbiturates Screen (NEGATIVE) U Tricyclic Antidepress (NEGATIVE) Ur Phencyclidine Scrn (NEGATIVE) Ur Amphetamine Screen (NEGATIVE) U Methamphetamines Scrn (NEGATIVE) Urine MDMA Screen (NEGATIVE) U Benzodiazepines Scrn (NEGATIVE) Urine Cocaine Screen (NEGATIVE) U Marijuana (THC) Screen (NEGATIVE) Ethyl Alcohol (0) mg/dL 10/22/20 10/22/20 10/22/20 Range/Units 16:00 18:22 18:22 WBC (5.0-10.0) 10^3/uL RBC (4.6-6.2) 10^6/uL Hgb (14.0-18.0) g/dL Hct (40.0-54.0) % MCV (80-100) fL MCH (27.0-34.0) pg MCHC (33.0-35.0) g/dL Plt Count (150-450) 10^3/uL Neut % (Auto) (42.2-75.2) % Lymph % (Auto) (20.5-50.1) % [place] % (Auto) (2-8) % Eos % (Auto) (1.0-3.0) % Baso % (Auto) (0.0-1.0) % Sodium (136-145) mmol/L Potassium (3.5-5.1) mmol/L Chloride (98-107) mmol/L Carbon Dioxide (21-32) mmol/L Anion Gap (7-13) mEq/L BUN (7-18) mg/dL Creatinine (0.70-1.30) mg/dL Est Cr Clr Drug Dosing mL/min Estimated GFR (MDRD) BUN/Creatinine Ratio (No establ ref range) Glucose (74-99) mg/dL Lactic Acid (0.4-2.0) mmol/L Calcium (8.5-10.1) mg/dL Total Bilirubin (0.2-1.0) mg/dL AST (15-37) U/L ALT (16-63) U/L Alkaline Phosphatase (46-116) U/L Troponin I (0.000-0.056) ng/mL Total Protein (6.4-8.2) g/dL Albumin (3.4-5.0) g/dL Globulin Albumin/Globulin Ratio Urine Color Yellow (YELLOW) Urine Appearance Slightly cloudy (CLEAR) Urine pH 7.0 (5.0-9.0) Ur Specific [place] 1.025 (1.005-1.030) Urine Protein 30 H (NEGATIVE) Urine Glucose (UA) Negative (NEGATIVE) Urine Ketones Negative (NEGATIVE) Urine Occult Blood Negative (NEGATIVE) Urine Nitrite Negative (NEGATIVE) Urine Bilirubin Negative (NEGATIVE) Urine Urobilinogen 0.2 (0.2-1.0) mg/dL Ur Leukocyte Esterase Negative (NEGATIVE) Urine RBC 0-5 /HPF Urine WBC 0-5 (0-5/HPF) /HPF Ur Epithelial Cells Rare (NOT SEEN) /HPF Amorphous Sediment Few (NOT SEEN) /HPF Urine Bacteria Rare (0-FEW/HPF) /HPF Urine Opiates Screen Negative (NEGATIVE) Ur Oxycodone Screen Negative (NEGATIVE) Urine Methadone Screen Negative (NEGATIVE) Ur Barbiturates Screen Negative (NEGATIVE) U Tricyclic Antidepress Negative (NEGATIVE) Ur Phencyclidine Scrn Negative (NEGATIVE) Ur Amphetamine Screen Positive H (NEGATIVE) U Methamphetamines Scrn Positive H (NEGATIVE) Urine MDMA Screen Positive H (NEGATIVE) U Benzodiazepines Scrn Negative (NEGATIVE) Urine Cocaine Screen Negative (NEGATIVE) U Marijuana (THC) Screen Positive H (NEGATIVE) Ethyl Alcohol < 3 (0) mg/dL - Radiology Interpretation Free Text/Narrative:: [facility] Final Radiology Report Call: [phone] assistance Online chat: [email or web address] Name: ALIRIO SORTO Age: 70Years M Date: 10/22/2020 SSN: -- : [id number] Study: CT HEAD WO CONT Requesting Physician: Isabel Sarah Images: 158 Addl Studies: Provided Clinical History: Dizziness; Lethargy Contrast: Without Contrast Medium: Contrast Amount: Contrast Method: Page 1 of 2 PROCEDURE INFORMATION: Exam: CT Head Without Contrast Exam date and time: 10/22/2020 5:09 PM Age: 70 years old Clinical indication: Other: Altered mentation; Patient HX: Keeps falling asleep, unable to answer questions, blood glucose normal, no ETOH; Additional info: Dizziness; Lethargy TECHNIQUE: Imaging protocol: Computed tomography of the head without contrast. Radiation optimization: All CT scans at this facility use at least one of these dose optimization techniques: automated exposure control; mA and/or kV adjustment per patient size (includes targeted exams where dose is matched to clinical indication); or iterative reconstruction. COMPARISON: No relevant prior studies available. FINDINGS: Brain: No mass effect or midline shift. No abnormal densities are seen intracranially; no sign of acute intracranial hemorrhage or cerebral edema. Cerebral ventricles: No ventriculomegaly. Bones/joints: Corticated contour defect in left lamina papyracea is consistent in appearance with old fracture. Paranasal sinuses: Visualized sinuses are unremarkable. No fluid levels. Mastoid air cells: Visualized mastoid air cells are well aerated. Soft tissues: Unremarkable. IMPRESSION: No acute intracranial abnormality. Thank you for allowing us to participate in the care of your patient. ALIRIO SORTO | Final Radiology Report CONFIDENTIALITY STATEMENT This report is intended only for use by the referring physician, and only in accordance with law. If you received this in error, call [phone]. Page 2 of 2 Dictated and Authenticated by: Sal Tristan MD 10/22/2020 5:38 PM Central Time ([place] & [address]) - Re-Assessments/Exams Free Text/Narrative Re-Assessment/Exam: 10/22/20 Work up unremarkable for acute processes. Head CT unremarkable for acute processes. Patient continues to refuse straight catheterization to assess urine/tox. ETOH normal. 10/22/20 18:48 Able to obtain tox screen via straight cath. Positive for Meth, MDMA, and THC Departure - Departure Time of Disposition: 18:12 Disposition: Home, Self-Care 01 Condition: Good Clinical Impression: Lethargy, Methamphetamine abuse, MDMA abuse, Cannabis abuse - Discharge Information *PRESCRIPTION DRUG MONITORING PROGRAM REVIEWED*: Not Applicable *COPY OF PRESCRIPTION DRUG MONITORING REPORT IN PATIENT ENMANUEL: Not Applicable Instructions: Substance Use Disorder Forms: ED Department Discharge Additional Instructions: Refrain from using methamphetamines and additional recreational drugs. Sepsis Event Note (ED) - Evaluation Sepsis Screening Result: No Definite Risk - Focused Exam Vital Signs: Vital Signs Temp Pulse Resp BP Pulse Ox 10/22/20 15:50 97 F 74 16 112/69 96 - My Orders Last 24 Hours: My Active Orders 10/22/20 15:49 EKG Documentation Completion [RC] STAT 10/22/20 15:50 Blood Glucose Check, Bedside [RC] ONETIME - Assessment/Plan Last 24 Hours: My Active Orders 10/22/20 15:49 EKG Documentation Completion [RC] STAT 10/22/20 15:50 Blood Glucose Check, Bedside [RC] ONETIME"
--- NOTE | 2020-10-22 17:38 | CT ---
PROCEDURE INFORMATION: Exam: CT Head Without Contrast Exam date and time: 10/22/2020 5:09 PM Age: 70 years old Clinical indication: Other: Altered mentation; Patient HX: Keeps falling asleep, unable to answer questions, blood glucose normal, no ETOH; Additional info: Dizziness; Lethargy TECHNIQUE: Imaging protocol: Computed tomography of the head without contrast. Radiation optimization: All CT scans at this facility use at least one of these dose optimization techniques: automated exposure control; mA and/or kV adjustment per patient size (includes targeted exams where dose is matched to clinical indication); or iterative reconstruction. COMPARISON: No relevant prior studies available. FINDINGS: Brain: No mass effect or midline shift. No abnormal densities are seen intracranially; no sign of acute intracranial hemorrhage or cerebral edema. Cerebral ventricles: No ventriculomegaly. Bones/joints: Corticated contour defect in left lamina papyracea is consistent in appearance with old fracture. Paranasal sinuses: Visualized sinuses are unremarkable. No fluid levels. Mastoid air cells: Visualized mastoid air cells are well aerated. Soft tissues: Unremarkable. IMPRESSION: No acute intracranial abnormality.
== END 2020-10-22 19:30 | disposition home or self-care (01) ==
LOC: DL.ED 15:38
DX: R53.83 Other fatigue (principal); F15.10 Other stimulant abuse, uncomplicated; F12.10 Cannabis abuse, uncomplicated; I10 Essential (primary) hypertension; M19.90 Unspecified osteoarthritis, unspecified site; E11.9 Type 2 diabetes mellitus without complications; Z79.84 Long term (current) use of oral hypoglycemic drugs; Z79.899 Other long term (current) drug therapy; Z79.82 Long term (current) use of aspirin
CPT/HCPCS: 36415; 70450; 80053; 80305-QW; 80307; 81001; 82962; 83605; 84484; 85025; 93005; 99284-25

== ENCOUNTER 2022-11-30 11:19 | Emergency (ER) | payer MEDICARE, MEDICAID ==
[2022-11-30 11:35] VITALS: BP 103/60; PULSE 105
[2022-11-30] MEDS: Albuterol/Ipratropium 3.0-0.5 MG/3 ML Neb Soln NEB ONE (11:38)
[2022-11-30] MEDS: Codeine/Promethazine 10-6.25 MG/5 ML Syrup 5 ML UD Cup PO ONE (11:38)
[2022-11-30 12:09] LABS: CORONAVIRUS COVID-19 NAA NEGATIVE (NEGATIVE); RESPIRATORY SYNCYTIAL VIR NAA NEGATIVE (NEGATIVE)
[2022-11-30] MEDS: Albuterol 6.7 GM Inhaler INH ONE (13:20)
== END 2022-11-30 13:25 | disposition home or self-care (01) ==
LOC: DL.ED 11:19
DX: J10.1 Influenza due to other identified influenza virus with other respiratory manifestations (principal); E78.00 Pure hypercholesterolemia, unspecified; I10 Essential (primary) hypertension; K21.9 Gastro-esophageal reflux disease without esophagitis; E11.9 Type 2 diabetes mellitus without complications; M19.90 Unspecified osteoarthritis, unspecified site; Z79.899 Other long term (current) drug therapy; Z79.84 Long term (current) use of oral hypoglycemic drugs; Z79.82 Long term (current) use of aspirin; Z20.822 Contact with and (suspected) exposure to COVID-19
CPT/HCPCS: 0241U; 71045; 99285; A9270-GY; J7620-GY

== ENCOUNTER 2023-01-24 09:17 | Inpatient (IN) | payer MEDICARE, MEDICAID ==
[2023-01-24] MEDS ORDERED: Aspirin 81 MG Tab.Chew PO ONE (09:24)
[2023-01-24] MEDS: Sodium Chloride 0.9% 10 ML Syringe FLUSH PRN ×2 (09:27→09:35)
[2023-01-24] MEDS ORDERED: Diltiazem 25 MG/5 ML SDV IVPUSH ONE (09:27)
[2023-01-24] MEDS ORDERED: Piperacillin/Tazobactam 4.5 GM in Sodium Chloride 0.9% 100 ML IV ONE (09:47)
[2023-01-24 09:55] LABS: PTT,PARTIAL THROMBOPLSTIN TIME 26.7 SEC (22.0-34.0)
[2023-01-24 10:10] LABS: ANION GAP 12.1 mEq/L (7-13); CHLORIDE,CL 103 mmol/L (98-107); ESTIMATED GFR 62 mL/min (>=60); SODIUM,NA 138 mmol/L (136-145)
[2023-01-24 10:21] LABS: CORONAVIRUS COVID-19 NAA NEGATIVE (NEGATIVE); RESPIRATORY SYNCYTIAL VIR NAA NEGATIVE (NEGATIVE)
[2023-01-24] MEDS ORDERED: Lactulose Soln 10 GM/15 ML 30 ML UD Cup PO ONE (10:23)
[2023-01-24] MEDS ORDERED: Diltiazem 125 MG in Sodium Chloride 0.9% 100 ML IV SCH ×2 (10:30→10:31)
[2023-01-24] MEDS ORDERED: Ondansetron 4 MG/2 ML SDV IVPUSH PRN (11:34)
[2023-01-24] MEDS ORDERED: Docusate Sodium 100 MG Cap PO PRN (11:34)
[2023-01-24] MEDS ORDERED: Albuterol/Ipratropium 3.0-0.5 MG/3 ML Neb Soln NEB PRN (11:34)
[2023-01-24] MEDS ORDERED: Bumetanide 1 MG Tab PO ONE (12:00)
[2023-01-24] MEDS ORDERED: Piperacillin/Tazobactam 4.5 GM in Sodium Chloride 0.9% 100 ML IV SCH (12:00)
[2023-01-24] MEDS ORDERED: Bisacodyl 5 MG Tab PO PRN (12:27)
[2023-01-24] MEDS ORDERED: Magnesium Hydroxide 400 MG/5 ML Susp 30 ML Cup PO PRN (12:27)
[2023-01-24] MEDS: Diltiazem IR 30 MG Tab PO SCH ×2 (13:21→23:19)
[2023-01-24] MEDS: predniSONE 20 MG Tab PO SCH (13:21)
[2023-01-24] MEDS: Omeprazole 20 MG Cap.CR PO SCH (13:21)
[2023-01-24] MEDS ORDERED: Oxybutynin 5 MG Tab PO SCH ×2 (14:00→23:15)
[2023-01-24] MEDS: Acetaminophen 325 MG Tab PO PRN (15:49)
[2023-01-24] MEDS: Piperacillin/Tazobactam 4.5 GM in Sodium Chloride 0.9% 100 ML IV SCH ×3 (16:43→23:23)
[2023-01-24] MEDS: metFORMIN 500 MG Tab PO SCH (18:18)
[2023-01-24 19:43] LABS: AMPHETAMINES,URINE NEGATIVE (NEGATIVE); BARBITURATES,URINE NEGATIVE (NEGATIVE); BENZODIAZEPINE,URINE NEGATIVE (NEGATIVE); MDMA (ECSTASY), URINE NEGATIVE (NEGATIVE); METHADONE,URINE NEGATIVE (NEGATIVE); METHAMPHETAMINES,URINE POSITIVE (NEGATIVE); OPIATES,URINE NEGATIVE (NEGATIVE); OXYCODONE,URINE NEGATIVE (NEGATIVE); PHENCYCLIDINE,URINE NEGATIVE (NEGATIVE); TCA,URINE NEGATIVE (NEGATIVE)
[2023-01-24] MEDS: Gabapentin 300 MG Cap PO SCH ×2 (20:27→21:00)
[2023-01-24] MEDS: Docusate Sodium 100 MG Cap PO SCH ×3 (20:28→20:48)
[2023-01-24] MEDS: Apixaban 5 MG Tab PO SCH ×2 (20:28→20:48)
[2023-01-24] MEDS ORDERED: Zolpidem 5 MG Tab PO PRN (21:00)
[2023-01-24] MEDS ORDERED: Non-Formulary Medication 1 Each (Gabapentin 600 MG Tablet) PO SCH (21:00)
[2023-01-25] MEDS: Acetaminophen 325 MG Tab PO PRN (02:21)
[2023-01-25] MEDS: Diltiazem IR 30 MG Tab PO SCH (05:56)
[2023-01-25] MEDS: Piperacillin/Tazobactam 4.5 GM in Sodium Chloride 0.9% 100 ML IV SCH ×2 (06:20→11:35)
[2023-01-25] MEDS ORDERED: Digoxin 125 MCG Tab PO ONE (07:16)
[2023-01-25 07:54] VITALS: BP 94/71; PULSE 61
[2023-01-25] MEDS: metFORMIN 500 MG Tab PO SCH (08:06)
[2023-01-25] MEDS: predniSONE 20 MG Tab PO SCH (08:06)
[2023-01-25 08:53] LABS: ANION GAP 12.5 mEq/L (7-13)
[2023-01-25] MEDS ORDERED: Bumetanide 1 MG Tab PO SCH (09:00)
[2023-01-25] MEDS ORDERED: Diltiazem 120 MG Cap.CD PO SCH (09:00)
[2023-01-25] MEDS ORDERED: Aspirin 81 MG Tab.EC PO SCH (09:00)
[2023-01-25] MEDS ORDERED: Nicotine 21 MG/24 Hr Patch TRDERM SCH (09:00)
[2023-01-25] MEDS ORDERED: Non-Formulary Medication 1 Each (Metformin [Glucophage Xr] 500 MG Tab.Er) PO SCH (09:00)
[2023-01-25] MEDS ORDERED: Mometasone Furoate Powder 220 MCG/Puff 14 Dose Inhaler INH SCH (09:00)
[2023-01-25] MEDS ORDERED: Multivitamins with Iron/Calcium/Folic Acid/Minerals Tab PO SCH (09:00)
[2023-01-25] MEDS ORDERED: Terazosin 5 MG Cap PO SCH (09:00)
[2023-01-25] MEDS ORDERED: Losartan 25 MG Tab PO SCH (09:00)
[2023-01-25] MEDS ORDERED: Hydrocortisone 2.5% Crm 30 GM Tube TOP SCH (09:00)
[2023-01-25] MEDS ORDERED: Diltiazem IR 30 MG Tab PO SCH (09:00)
[2023-01-25] MEDS: Omeprazole 20 MG Cap.CR PO SCH (09:32)
[2023-01-25] MEDS: Gabapentin 300 MG Cap PO SCH (09:32)
[2023-01-25] MEDS: Docusate Sodium 100 MG Cap PO SCH (09:33)
[2023-01-25] MEDS: Apixaban 5 MG Tab PO SCH (09:35)
[2023-01-25] MEDS ORDERED: Diltiazem IR 30 MG Tab ONE (12:47)
[2023-01-25] MEDS ORDERED: Diltiazem IR 30 MG Tab PO ONE (15:53)
[2023-01-26] MEDS ORDERED: Digoxin 125 MCG Tab PO SCH (09:00)
== END 2023-01-25 12:00 | disposition home or self-care (01) | DRG 308 ==
LOC: DL.ED 09:17 → DL.MS 10:54
PROVIDERS: ADMIT Internal Medicine; ATTEND Internal Medicine
DX: I48.91 Unspecified atrial fibrillation (principal); J69.0 Pneumonitis due to inhalation of food and vomit; J44.1 Chronic obstructive pulmonary disease with (acute) exacerbation; I48.92 Unspecified atrial flutter; H54.7 Unspecified visual loss; E78.00 Pure hypercholesterolemia, unspecified; I10 Essential (primary) hypertension; K21.9 Gastro-esophageal reflux disease without esophagitis; Z20.822 Contact with and (suspected) exposure to COVID-19; G89.29 Other chronic pain; M54.9 Dorsalgia, unspecified; F17.210 Nicotine dependence, cigarettes, uncomplicated; M19.90 Unspecified osteoarthritis, unspecified site; K59.09 Other constipation; E11.36 Type 2 diabetes mellitus with diabetic cataract; Z79.84 Long term (current) use of oral hypoglycemic drugs; Z98.890 Other specified postprocedural states; Z79.51 Long term (current) use of inhaled steroids; Z79.899 Other long term (current) drug therapy; Z79.82 Long term (current) use of aspirin; Z85.46 Personal history of malignant neoplasm of prostate
CPT/HCPCS: 0241U; 36415; 71045; 80048; 80053; 80305-QW; 80307; 81001; 82947; 83605; 83690; 83735; 83880; 84145; 84443; 84484; 85025; 85610; 85730; 87040; 93005; 93010; 96365; 96375; 96376; 97165-GO; 99223; 99239; 99285; 99285-25; A9270-GY; J2543; J3490; J7050; J7512

== ENCOUNTER 2023-01-29 09:28 | Emergency (ER) | payer MEDICARE, MEDICAID ==
[2023-01-29 09:40] VITALS: BP 110/93; PULSE 99
[2023-01-29 10:37] LABS: ANION GAP 12.1 mEq/L (7-13); CHLORIDE,CL 103 mmol/L (98-107); SODIUM,NA 138 mmol/L (136-145)
[2023-01-29 10:52] LABS: ESTIMATED GFR 49 mL/min (>=60)
[2023-01-29 10:56] LABS: AMPHETAMINES,URINE NEGATIVE (NEGATIVE); BARBITURATES,URINE NEGATIVE (NEGATIVE); BENZODIAZEPINE,URINE NEGATIVE (NEGATIVE); MDMA (ECSTASY), URINE NEGATIVE (NEGATIVE); METHADONE,URINE NEGATIVE (NEGATIVE); METHAMPHETAMINES,URINE NEGATIVE (NEGATIVE); OPIATES,URINE NEGATIVE (NEGATIVE); PHENCYCLIDINE,URINE NEGATIVE (NEGATIVE); TCA,URINE NEGATIVE (NEGATIVE)
[2023-01-29 10:57] LABS: OXYCODONE,URINE NEGATIVE (NEGATIVE)
== END 2023-01-29 11:17 | disposition home or self-care (01) ==
LOC: DL.ED 09:28
DX: R20.2 Paresthesia of skin (principal); T40.715A Adverse effect of cannabis, initial encounter; I48.91 Unspecified atrial fibrillation; E78.00 Pure hypercholesterolemia, unspecified; I10 Essential (primary) hypertension; J44.9 Chronic obstructive pulmonary disease, unspecified; K21.9 Gastro-esophageal reflux disease without esophagitis; E11.9 Type 2 diabetes mellitus without complications; M19.90 Unspecified osteoarthritis, unspecified site; Z79.82 Long term (current) use of aspirin; Z79.84 Long term (current) use of oral hypoglycemic drugs; Z79.01 Long term (current) use of anticoagulants
CPT/HCPCS: 36415; 70450; 80053; 80162; 80305-QW; 80307; 81003; 82947; 84484; 85025; 93005; 93010; 99284; 99285

== ENCOUNTER 2023-03-30 16:19 | Emergency (ER) | payer MEDICARE, MEDICAID ==
[2023-03-30] MEDS ORDERED: Sodium Chloride 0.9% 10 ML Syringe FLUSH PRN (16:33)
[2023-03-30] MEDS ORDERED: Naloxone 2 MG/2 ML Syringe IVPUSH ONE (16:43)
[2023-03-30 16:55] LABS: BASOPHILS PERCENT AUTO 0.2 % (0.0-1.0); EOSINOPHILS PERCENT AUTO 2.9 % (1.0-3.0); HEMATOCRIT 41.8 % (40.0-54.0); HEMOGLOBIN 14.1 g/dL (14.0-18.0); LYMPHOCYTES PERCENT AUTO 11.9 % (20.5-50.1); MEAN CORPUSCULAR HEMOGLOBIN 28.1 pg (27.0-34.0); MEAN CORPUSCULAR HGB CONC 33.7 g/dL (33.0-35.0); MEAN CORPUSCULAR VOLUME 83.3 fL (80-100); MONOCYTES PERCENT AUTO 9.9 % (2-8); NEUTROPHILS PERCENT AUTO 75.1 % (42.2-75.2); PLATELET COUNT,PLT 136 10^3/uL (150-450); RED BLOOD CELL COUNT 5.02 10^6/uL (4.6-6.2); WHITE BLOOD CELL COUNT,WBC 4.5 10^3/uL (5.0-10.0)
[2023-03-30 17:02] LABS: APPEARANCE,URINE SLIGHTLY CLOUDY (CLEAR); BILIRUBIN,URINE NEGATIVE (NEGATIVE); COLOR,URINE DARK YELLOW (YELLOW); GLUCOSE,URINE NEGATIVE (NEGATIVE); KETONES,URINE NEGATIVE (NEGATIVE); LEUKOCYTE ESTERASE,URINE MODERATE (NEGATIVE); NITRITE,URINE POSITIVE (NEGATIVE); OCCULT BLOOD,URINE MODERATE (NEGATIVE); PH,URINE 5.5 (5.0-9.0); PROTEIN,URINE 30 (NEGATIVE)
[2023-03-30 17:10] LABS: AMORPHOUS SEDIMENT,URINE FEW /HPF (NOT SEEN); BACTERIA,URINE MANY /HPF (0-FEW/HPF); EPITHELIAL CELLS,URINE RARE /HPF (NOT SEEN); METHAMPHETAMINES,URINE POSITIVE (NEGATIVE); MUCUS,URINE FEW /LPF (NOT SEEN); RBC,URINE 0-5 /HPF (0-5); WBC,URINE SEMI-PACKED /HPF (0-5/HPF)
[2023-03-30 17:11] LABS: AMPHETAMINES,URINE POSITIVE (NEGATIVE); BARBITURATES,URINE NEGATIVE (NEGATIVE); BENZODIAZEPINE,URINE NEGATIVE (NEGATIVE); MDMA (ECSTASY), URINE NEGATIVE (NEGATIVE); METHADONE,URINE NEGATIVE (NEGATIVE); OPIATES,URINE NEGATIVE (NEGATIVE); OXYCODONE,URINE NEGATIVE (NEGATIVE); PHENCYCLIDINE,URINE NEGATIVE (NEGATIVE); TCA,URINE NEGATIVE (NEGATIVE)
[2023-03-30 17:12] LABS: B-TYPE NATRIURETIC PEPTIDE,BNP 73 pg/ml (0-100)
[2023-03-30] MEDS ORDERED: Sodium Chloride 0.9% 1,000 ML IV ONE (17:15)
[2023-03-30 17:16] VITALS: BP 92/77
[2023-03-30 17:16] LABS: ALANINE AMINOTRANSFERASE,ALT 14 U/L (16-63); ALBUMIN 3.2 g/dL (3.4-5.0); ALKALINE PHOSPHATASE 118 U/L (46-116); ANION GAP 10.2 mEq/L (7-13); ASPARTATE AMNIOTRANSFERASE,AST 12 U/L (15-37); BILIRUBIN TOTAL 0.4 mg/dL (0.2-1.0); BLOOD UREA NITROGEN,BUN 19 mg/dL (7-18); C-REACTIVE PROTEIN 2.3 mg/dL (0.0-0.9); CALCIUM 8.5 mg/dL (8.5-10.1); CARBON DIOXIDE,CO2 29 mmol/L (21-32); CHLORIDE,CL 105 mmol/L (98-107); CREATINE KINASE,CK 97 U/L (39-308); CREATININE 1.27 mg/dL (0.70-1.30); EST CRCL DRUG DOSING (CG) 58.56 mL/min; GLUCOSE RANDOM 112 mg/dL (70-99); MAGNESIUM 1.7 mg/dL (1.8-2.4); POTASSIUM,K 4.2 mmol/L (3.5-5.1); PROTEIN TOTAL,TP 6.7 g/dL (6.4-8.2); SODIUM,NA 140 mmol/L (136-145)
[2023-03-30 17:19] LABS: PROTHROMBIN TIME 9.9 SEC (9.0-12.0); PTT,PARTIAL THROMBOPLSTIN TIME 27.3 SEC (22.0-34.0)
[2023-03-30] MEDS ORDERED: Ciprofloxacin in D5W 400 MG in Premix Bag 1 BAG IV ONE ×2 (17:19)
[2023-03-30 17:20] LABS: A/G RATIO 0.91; ESTIMATED GFR 60 mL/min (>=60); ETHANOL BLOOD MEDICAL < 3 mg/dL (0)
[2023-03-30 19:13] VITALS: PULSE 85
== END 2023-03-30 19:12 | disposition home or self-care (01) ==
LOC: DL.ED 16:19
DX: N39.0 Urinary tract infection, site not specified (principal); F15.10 Other stimulant abuse, uncomplicated; F12.10 Cannabis abuse, uncomplicated; I48.91 Unspecified atrial fibrillation; I10 Essential (primary) hypertension; K21.9 Gastro-esophageal reflux disease without esophagitis; M19.90 Unspecified osteoarthritis, unspecified site; E11.9 Type 2 diabetes mellitus without complications; Z79.82 Long term (current) use of aspirin; Z79.84 Long term (current) use of oral hypoglycemic drugs; Z79.01 Long term (current) use of anticoagulants; Z79.899 Other long term (current) drug therapy
CPT/HCPCS: 36415; 70450; 71045; 80053; 80162; 80305-QW; 80307; 81001; 82140; 82550; 82947; 83605; 83735; 83880; 84145; 84484; 85025; 85610; 85730; 86140; 87040; 87086; 87088; 87186; 93005; 93010; 96365; 96375; 99284; 99285-25; J0744; J2310; J3490; J7030

== ENCOUNTER 2024-01-02 13:58 | Emergency (ER) | payer MEDICAID, MEDICARE ==
[2024-01-02 14:11] VITALS: BP 120/83; PULSE 87
[2024-01-02 14:59] LABS: AMPHETAMINES,URINE NEGATIVE (NEGATIVE); BARBITURATES,URINE NEGATIVE (NEGATIVE); BENZODIAZEPINE,URINE NEGATIVE (NEGATIVE); MDMA (ECSTASY), URINE NEGATIVE (NEGATIVE); METHADONE,URINE NEGATIVE (NEGATIVE); METHAMPHETAMINES,URINE POSITIVE (NEGATIVE); OPIATES,URINE NEGATIVE (NEGATIVE); OXYCODONE,URINE NEGATIVE (NEGATIVE); PHENCYCLIDINE,URINE NEGATIVE (NEGATIVE); TCA,URINE NEGATIVE (NEGATIVE)
[2024-01-02] MEDS: Diphtheria,Pertussis(Acell),Tetanus Vaccine 0.5 ML Syringe IM ONE (15:52)
== END 2024-01-02 15:58 | disposition home or self-care (01) ==
LOC: DL.ED 13:58
DX: S21.112A Laceration without foreign body of left front wall of thorax without penetration into thoracic cavity, initial encounter (principal); S60.011A Contusion of right thumb without damage to nail, initial encounter; S60.212A Contusion of left wrist, initial encounter; I48.91 Unspecified atrial fibrillation; E78.00 Pure hypercholesterolemia, unspecified; I10 Essential (primary) hypertension; J45.909 Unspecified asthma, uncomplicated; K21.9 Gastro-esophageal reflux disease without esophagitis; E11.9 Type 2 diabetes mellitus without complications; Z79.51 Long term (current) use of inhaled steroids; Z79.82 Long term (current) use of aspirin; Z79.899 Other long term (current) drug therapy; Z79.01 Long term (current) use of anticoagulants; Y04.0XXA Assault by unarmed brawl or fight, initial encounter; Y92.009 Unspecified place in unspecified non-institutional (private) residence as the place of occurrence of the external cause
CPT/HCPCS: 71046; 73100-LT; 73120-LT; 73120-RT; 74021; 80305-QW; 90471; 90715; 99284; 99284-25

== ENCOUNTER 2024-05-08 07:59 | Emergency (ER) | payer MEDICAID, MEDICARE ==
[2024-05-08] MEDS: Magnesium Sulfate/Water 2 GM in Premix Bag 1 BAG IV ONE (08:08)
[2024-05-08] MEDS: methylPREDNISolone Sodium Succinate 125 MG/2 ML SDV IVPUSH ONE (08:10)
[2024-05-08 08:20] LABS: O2 DELIVERY DEVICE SIMPLE MASK
[2024-05-08 08:25] LABS: PCO2 VENOUS 46 mmHg (41-51); PH,VENOUS 7.36 (7.31-7.41)
[2024-05-08 08:26] LABS: BICARBONATE,VENOUS 25 mmol/l (19-25); O2 SATURATION VENOUS 44.7 % (60-80); PO2 VENOUS 31 mmHg (35-42)
[2024-05-08 08:28] LABS: BASE EXCESS VENOUS -0.2 mmol/l ((-2)-(+3))
[2024-05-08] MEDS: Albuterol/Ipratropium 3.0-0.5 MG/3 ML Neb Soln NEB ONE (08:28)
[2024-05-08] MEDS: Sodium Chloride 0.9% 1,000 ML IV ONE ×2 (08:38→10:01)
[2024-05-08 08:57] LABS: EOSINOPHILS PERCENT AUTO 0.1 % (1.0-3.0); HEMATOCRIT 41.7 % (40.0-54.0); HEMOGLOBIN 14.2 g/dL (14.0-18.0); LYMPHOCYTES PERCENT AUTO 3.4 % (20.5-50.1); MEAN CORPUSCULAR HGB CONC 34.1 g/dL (33.0-35.0); MEAN CORPUSCULAR VOLUME 85.1 fL (80-100); MONOCYTES PERCENT AUTO 1.6 % (2-8); NEUTROPHILS PERCENT AUTO 94.9 % (42.2-75.2); PLATELET COUNT,PLT 108 10^3/uL (150-450); WHITE BLOOD CELL COUNT,WBC 8.9 10^3/uL (5.0-10.0)
[2024-05-08] MEDS: cefTRIAXone 1 GM Vial IVPUSH ONE (08:57)
[2024-05-08 08:59] LABS: ANION GAP 15.6 mEq/L (7-13); POTASSIUM,K 4.6 mmol/L (3.5-5.1)
[2024-05-08 09:00] LABS: A/G RATIO 0.59; ALBUMIN 2.6 g/dL (3.4-5.0); BILIRUBIN TOTAL 1.3 mg/dL (0.2-1.0); BUN/CREATININE RATIO 28.8 (No establ ref range); CALCIUM 9.4 mg/dL (8.5-10.1); CREATININE 2.43 mg/dL (0.70-1.30); EST CRCL DRUG DOSING (CG) 34.63 mL/min; MAGNESIUM 2.2 mg/dL (1.8-2.4)
[2024-05-08] MEDS: Azithromycin 500 MG in Sodium Chloride 0.9% 250 ML IV ONE (09:00)
[2024-05-08 09:02] LABS: LACTIC ACID 2.3 mmol/L (0.4-2.0)
[2024-05-08] MEDS ORDERED: Iopamidol 755 Mg/ML 100 ML Bottle IVPUSH ONE (09:09)
[2024-05-08 09:10] LABS: BAND PERCENT MAN 1 %; LYMPHOCYTES PERCENT MAN 7 % (20-50); MONOCYTES PERCENT MAN 3 % (2-8); SEG NEUTROPHILS PERCENT MAN 89 % (42-75)
[2024-05-08] MEDS: Enoxaparin 100 MG/1 ML Syringe SUBCUT ONE (09:10)
[2024-05-08 09:50] VITALS: BP 121/68; PULSE 101
[2024-05-08] MEDS: Oseltamivir 75 MG Cap PO ONE (10:37)
== END 2024-05-08 10:38 ==
LOC: DL.ED 07:59
DX: J44.1 Chronic obstructive pulmonary disease with (acute) exacerbation (principal); A41.9 Sepsis, unspecified organism; J10.00 Influenza due to other identified influenza virus with unspecified type of pneumonia; R65.20 Severe sepsis without septic shock; N17.9 Acute kidney failure, unspecified; I48.91 Unspecified atrial fibrillation; E87.1 Hypo-osmolality and hyponatremia; R79.89 Other specified abnormal findings of blood chemistry; I10 Essential (primary) hypertension; J45.909 Unspecified asthma, uncomplicated; K21.9 Gastro-esophageal reflux disease without esophagitis; M19.90 Unspecified osteoarthritis, unspecified site; E11.9 Type 2 diabetes mellitus without complications; F17.210 Nicotine dependence, cigarettes, uncomplicated; Z79.899 Other long term (current) drug therapy; Z79.82 Long term (current) use of aspirin; Z79.84 Long term (current) use of oral hypoglycemic drugs
CPT/HCPCS: 36415; 71045; 80053; 82803; 82947; 83605; 83735; 84484; 85025; 85379; 87040; 87804; 93005; 93010; 94660; 96361; 96365; 96375; 99285; J0456; J0696; J1650; J2919; J3475; J7030; J7050; U0002; J7620-GY